=== PATIENT | male | born 1965 | race Caucasian/White ===

== ENCOUNTER → 2017-04-16 | Outpatient (CLI) | payer OTHER ==
[~2017-04-16] MED LIST: ASPCH81 PO; ATOR-24 PO; CANA1TAB3 PO; GLC/500 PO; GLC5 PO; LISI-725 PO; METO-551 PO; SITA100T3 PO; ZCRUNK PO
--- NOTE | 2017-04-17 06:39 | PAP/PSG TECHNICIAN REPORT ---
[facility] Human Services Professional Polysomnogram Report Study name: None Report date: 04/17/2017 Study date: 04/16/2017 Referring Physician: Edouard BARBOUR M.D. Name: KAYLEE HORTON Interpreting Physician: Helen Barbour M.D. Date of : 1965 Human Services Professional: Dave Jason RPSGT. Sex: Male Age: 51 StudyType: PSG Weight: 289 lbs 18.5 inches Height: 51 years, Height 5' 11" Neck Circum: BMI: 40.3 Medications: LISINOPRIL 20 MG, JANUVIA 100 MG, INVOKANA 300 MG, LOPRESSOR 50 MG, GLUCOPHAGE 500 MG, LIPITOR 40 MG, GLUCOTROL 5 MG, NITROSTAT 0.4 MG, ASPIRIN 81 MG, Patient History PATIENT HAS HISTORY OF LOUD SNORING, FATIGUE, NOCTURIA, NON REFRESHING SLEEP AND CT. HE STRUGGLES WITH EXCESSIVE DAYTIME SLEEPINESS AND THIS HAS BEEN GOING ON FOR A YEAR. HE IS HERE TODAY FOR AN EVALUATION FOR TORSTEN. ESS = 18 RM 5 Parameters Monitored NPSG: E1-M2, E2-M1, Fp1-M2, Fp2-M1, F3-M2, F4-M2, F4-M1, C3-M2, C4-M2, C4-M1, O1-M2, O2-M2, O2-M1, T3-M2, T4-M1, P3-M2, P4-M1, CHIN1, CHIN2, HR, EKG, Legs, PFLOW, SNOR, FLOW, CFLOW, Tidal Volume, THOR, ABDO, SpO2, PLTH, CPRESS, ETCO2 Wave, ETCO2, pH Sleep Architecture Sleep Stages Time at Lights Off 9:31:39 PM STAGES Time (min.) TST (%) Time at Lights On 5:31:09 AM Wake 125.5 -- Total Recording Time (TRT) 480.00 min. N1 30.5 9 Total Sleep Period (TSP) 465.5 min. N2 287.5 81 Total Sleep Time (TST) 354.0min. N3 0.0 0 Awake Time 125.5 min. REM 36.0 10 Wake after Sleep Onset 111.5 min. Sleep Efficiency (SE) 74 % Sleep Onset Latency (JENNIFER) 14.0 min. Number of Stage 1 Shifts None Awakenings 23 Stage Changes 64 Number of REM periods 2 REM 36.0 10 REM Latency 301.0 min. NREM 318.0 90 Body Position Analysis Supine Right Left Side Prone Vertical Total Sleep Time (min.) 106.9 275.8 39.0 314.83 0.0 0.0 Total Sleep Time (%) 11% 78% 11% 89 0% N/A% Total Sleep Time REM (min.) 0.0 36.0 0.0 None 0.0 0.0 Total Sleep Time NREM (min.) 39.2 239.8 39.0 None 0.0 0.0 Intermittent Wake (min.) 67.8 46.5 11.2 None 0.0 0.0 Total Sleep Period (%) 20% None None None None None Arousals Myoclonus (PLM) * Events Count Index Events Count Index Spontaneous 39 7 Events Awake (PLMW) 77 36.8 Respiratory 6 1.0 Events Asleep w/ Arousal (PLMA) 3 0.5 PLM 2 1 Events Asleep w/o Arousal (PLMS) 33 5.6 Snoring 5 1 Total Asleep 36 6.1 Total 52 9 Total 113 14 Respiratory Analysis * CA OA MA CH H RERA Total Count 2 24 1 0 113 0 140 Index 0.3 4.1 0.2 0 19.2 0 23.7 Mean Duration 21.4 18.7 25.5 0.00 15.8 0.0 16.5 Longest Duration 28.4 29.7 25.5 0.00 25.5 0.0 29.7 Respiratory Event Summary Total Supine ~Supine Right Left Prone REM NREM Apneas Count 27 1 26 26 0 N/A 24 3 Index 4.6 2 5 5.7 0.0 N/A 40 1 Hypopneas (4% Desat) Count 113 32 81 64 17 N/A 15 98 Index 19.2 49.0 15 13.9 26.2 N/A 25.0 18.5 Apneas & All Hypopneas Count 140 33 107 90 17 N/A 39 101 Index 23.7 51 20 20 26 N/A 65.0 19.1 Respiratory Events (Entry Level Buyer+All Hyp+RERA) Count 140 33 107 90 17 N/A 39 101 Index 23.7 51 20 19.6 26.2 N/A 65.0 19.1 Respiratory Related Arousal Count 6 33 4 4 0 N/A 0 6 Index 1.0 3 1 1 0 N/A 0 1 Snoring Analysis Supine Right Left Prone REM NREM Total Snore duration 7.0 min Snores count 68 360 17 N/A 10 435 445 Snore mean duration 0.9 Sec Snores index 104 78 26 N/A 16.7 82.1 75.4 TST with snoring (%) 2.0% Desaturation Event Summary: Minimum %SpO2 Event Count Mean/Min/Max Duration(sec.) Desaturation Index % Time In Bed > 90 119 28.1 / 6.8 / 60.0 40.3 37.6 86 - 90 52 26.0 / 4.5 / 60.0 11.0 60.4 81 - 85 3 8.2 / 4.5 / 14.0 29.1 1.3 76 - 80 1 8.5 / 8.5 / 8.5 31.0 0.4 71 - 75 0 N/A 0.0 0.3 66 - 70 0 N/A 0.0 0.0 61 - 65 0 N/A 0.0 0.0 56 - 60 0 N/A 0.0 0.0 51 - 55 0 N/A 0.0 0.0 < 50 0 N/A 0.0 0.0 Total REM NREM Awake <50% 0.0 min. 0.0 min. 0.0 min. 0.0 min. 51 - 60% 0.0 min. 0.0 min. 0.0 min. 0.0 min. 61 - 70% 0.0 min. 0.0 min. 0.0 min. 0.0 min. 71 - 80% 3.1 min. 3.1 min. 0.0 min. 0.0 min. 81 - 90% 290.5 min. 13.3 min. 210.4 min. 66.7 min. 91 - 100% 177.0 min. 19.5 min. 107.4 min. 50.0 min. Average 90 89 90 90 Minimum SpO2 71 71 80 83 Desaturation Event Index 16.8 50.0 18.9 1.9 # Desat. Events below 89% 117 27 88 2 Time(%) with Saturation below 89% 18.4 2.3 13.7 2.3 Time(min.) with Saturation below 89% 86.4 11.0 64.6 10.8 Time (mins) REM (mins) NREM (mins) % of TST SpO2 Below 90% 129 29 N100 41.2 SpO2 Below 88% 54 0 0 8 Heart Rate Analysis Min (bpm) Max (bpm) Average (bpm) Awake 63 127 78 NREM 59 90 73 REM 60 103 75 Overall 59 103 74 Supplemental O2 Values Minimum O2 level: None Value Start Time End Time Human Services Professional Comments Mr. Horton slept in the right, left and supine positions. No cardiac arrhythmia noted. Leg movements noted. No bruxism noted. Snoring was noted and scored as a 4 on a scale of 1 through 5. (0=no snoring, 5=snoring loud enough to be heard through a closed door or down the [address] way) Mr. Horton awoke to use the restroom 1 time during the night. Mr. Horton stated I did not sleep as well as I do when I am in my own bed. The final report will be interpreted and signed by a sleep physician. The completed physician report will then be placed in the patient medical record. Therapy (cm H2O) 0 TIB (min.) 479.5 TST (min.) 354.0 Sleep Onset (min.) 14.0 REM Onset From Sleep (min.) 301.0 Sleep Efficiency % 74 Wakefulness (%) 26 Wakefulness (min.) 125.5 NREM 1 (%) 9 NREM 1 (min.) 30.5 NREM 2 (%) 81 NREM 2 (min.) 287.5 NREM 3 (%) 0 NREM 3 (min.) 0.0 REM (%) 10 REM (min.) 36.0 # Arousals 52 Arousal Index 9 # Snore 445 Snore Index 75.4 AHI 23.7 AHI Supine 51 AHI Non-Supine 20 NREM AHI 19.1 REM AHI 65.0 RDI 23.7 # Obstructive Apnea 24 # Central Apnea 2 # Mixed Apnea 1 # Hypopneas 113 RERAs 0 Total Respiratory Events 140 Time Below SpO2 89% (min.) 75.6 Mean NREM SpO2 (%) 90 Mean REM SpO2 (%) 89 Mean Sleep SpO2 (%) 90 Min NREM SpO2 (%) 80 Min REM SpO2 (%) 71 Position Supine (min.) 106.9 Position Non-supine (min.) 314.8 LM Index Sleep 6.1 LM Index NREM 3.6 LM Index REM 28.3 Mean Heart Rate (bpm) 74 Min Heart Rate (bpm) 59
--- NOTE | 2017-04-22 11:46 | POLYSOMNOGRAPH REPORT ---
REFERRING PERSON: Dr. Pete Barbour. CLOSING SUPERVISOR: Dave Jason. Mr. Horton is a 51-year-old male with loud snoring, nocturia, unrefreshing sleep and a history of atherosclerotic heart disease. He has felt excessively sleepy during the day for the last year. His Keene sleepiness scale score on the evening of this study is 18. BMI is 40.3. Following the technical and digital specifications of the [place] [employer] (AASM) a standard diagnostic polysomnogram was performed monitoring EEG, EOG, EMG (chin and leg deviations), oxygen saturation, body position, digital video, respiratory effort and airflow. The sleep Stage and event scoring was based on the AASM Manual for the Scoring of Sleep and Associated Events 2007 edition. Apneas are defined as a drop in the peak thermal sensor excursion by >90% of baseline for at least 10 seconds. Hypopneas were scored using the 4% oxygen desaturation rule (4A-[employer]) and a decrease in the nasal pressure excursions by >30% of baseline for at least 10 seconds. Respiratory effort-related arousal (RERA's) is defined as a sequence of breaths lasting at least 10 seconds characterized by increasing respiratory effort or flattening of the nasal pressure waveform leading to an arousal from sleep when the sequence of breaths does not meet criteria for an apnea or hypopnea. Apnea Hypopnea index (AHI) is defined as the number of apneas and hypopneas occurring in an hour of sleep. Respiratory disturbance index (RDI) is defined as the number of apneas, hypopneas, and RERA's occurring in an hour of sleep. Mr. Lopez total sleep period time was 465.5 minutes. Total sleep time was 354 minutes. Sleep efficiency was 74%. Latency to sleep onset was 14 minutes with wake after sleep onset of 111.5 minutes. Total non-REM sleep time was 318 minutes. He spent 9% of that time in N1 sleep, 81% in N2 sleep and no time in N3 sleep. REM latency was 301 minutes. Total REM sleep time was 36 minutes or 10% of total sleep time. There were 52 cortical arousals from sleep. Thirty-nine of these arousals were spontaneous, 6 were due to respiratory events, 2 due to periodic limb movements of sleep and 5 were due to snoring. There were 36 periodic limb movements noted on this test. Limb movement index was 6.1. Limb movement with arousal index was 0.5. There were 2 central, 24 obstructive and 1 mixed apnea on this test. There were 113 hypopnea and no RERA. Apnea-hypopnea index was 23.7 consistent with moderately severe sleep apnea. Supine AHI was 51 and REM AHI was 65. 445 snoring events were recorded. Total sleep time with snoring was 2%. Mean saturation was borderline low at 90%. Saturations were less than 89% for 86.4 minutes of recorded time. This is significant nocturnal hypoxemia. There was no cardiac ectopy noted on this study. Heart rates ranged from a low of 59 beats per minute to a high of 103 beats per minute on this study. IMPRESSION AND PLAN: Mr. Horton is a 51-year-old male with evidence of moderate sleep apnea which is severe and supine in REM sleep as well as very significant nocturnal hypoxemia. 1. This patient would likely benefit from positive airway pressure therapy. He should return to the sleep lab for a full night titration and then based on those results be started on equipment at home. A download from his machine should be reviewed in 1 month both to check compliance as well as AHI and further pressure adjustments can occur at that time. In-lab polysomnogram will ensure that hypoxemia as well as apnea resolves with CPAP alone and given opportunity to add oxygen to CPAP if necessary. 2. Should this patient be unwilling or unable to tolerate CPAP therapy, he should be started on nocturnal oxygen (if his insurance will allow) and be referred to ear, nose and throat, oral surgery or dental medicine to discuss alternative treatments for sleep disordered breathing.
== END | disposition home or self-care (01) ==
LOC: C.NEUR 20:00
PROVIDERS: ATTEND Family Medicine
DX: G47.30 Sleep apnea, unspecified (principal); E66.01 Morbid (severe) obesity due to excess calories; I25.10 Atherosclerotic heart disease of native coronary artery without angina pectoris; E11.9 Type 2 diabetes mellitus without complications; I10 Essential (primary) hypertension; E78.5 Hyperlipidemia, unspecified; Z68.41 Body mass index [BMI] 40.0-44.9, adult